=== PATIENT | female | born 2005 | race Two or more races ===

== ENCOUNTER 2025-05-18 05:25 | Inpatient (IN) | payer OTHER ==
[2025-05-18] MEDS: LACTATED RINGERS SOLUTION 1000 ML INFUS.BAG IV STA (06:05)
[2025-05-18] MEDS ORDERED: ACETAMINOPHEN INJECTION 100 ML ONE ×2 (06:05→13:39)
[2025-05-18] MEDS: SODIUM CHLORIDE 0.9% 500 ML INFUS.BAG IV ONE (06:05)
[2025-05-18] MEDS: SODIUM CHLORIDE 0.9% 1000 ML INFUS.BAG IV STA (06:05)
[2025-05-18] MEDS: ACETAMINOPHEN 1000 MG/100 ML BAG IVPB ONE ×2 (06:21→13:43)
[2025-05-18] MEDS ORDERED: MORPHINE SULFATE 2 MG/ML SYRINGE ONE (06:22)
[2025-05-18] MEDS: morphine CARPU-JECT 2 MG/1 ML DISP.SYRIN IVPUSH ONE (06:26)
[2025-05-18 06:31] LABS: VENOUS BASE EXCESS 0.2 mmol/L (-2-2); VENOUS O2 SATURATION 53.7 % (70-80); VENOUS PCO2 23.7 mmHg (38-52); VENOUS PH 7.559 (7.310-7.410)
[2025-05-18 06:33] LABS: HEMATOCRIT 36.6 % (34.1-44.9); HEMOGLOBIN 12.3 g/dL (11.2-15.7); MCHC 33.6 g/dl (32.2-35.5); MEAN CELL VOLUME 86.1 fl (79.4-94.8); MEAN PLT VOLUME 10.6 fl (9.4-12.3); PLATELET COUNT 256 x10^3/uL (182-369); RDW 11.9 % (12.0-16.2)
[2025-05-18 06:44] LABS: INR 1.23 (0.83-1.09); PROTHROMBIN TIME (PATIENT) 13.5 SEC (9.7-13.0)
[2025-05-18 06:47] LABS: ACTIVATED PTT 27.2 SECONDS (25.2-36.5)
[2025-05-18 06:48] LABS: POTASSIUM 3.7 mmol/L (3.5-5.1)
[2025-05-18 06:50] LABS: ALBUMIN 3.8 g/dl (3.4-5.0); CALCIUM 9.5 mg/dL (8.5-10.1)
[2025-05-18 06:51] LABS: BLOOD UREA NITROGEN 13.9 mg/dL (7-18)
[2025-05-18 06:54] LABS: CREATININE 0.6 mg/dL (0.55-1.3)
[2025-05-18 06:56] LABS: BILIRUBIN,TOTAL 0.9 mg/dL (0.2-1); TOT PROT 7.3 g/dl (6.4-8.2)
[2025-05-18 08:25] LABS: EPI CELLS >36 /uL (0-25.1); HYALINE CASTS 1 /uL (0-3.1); URINE APPEARANCE CLEAR; URINE BACTERIA 1284 /uL (0-1359); URINE BILIRUBIN NEGATIVE (NEGATIVE); URINE COLOR YELLOW; URINE GLUCOSE (UA) NEGATIVE (NEGATIVE); URINE KETONE 4+ (NEGATIVE); URINE LEUK ESTERASE TRACE (NEGATIVE); URINE NITRITE NEGATIVE (NEGATIVE); URINE PROTEIN 1+ (NEGATIVE); URINE RBC 110 /uL (0-23.9); URINE WBC 102 /uL (0-25.8)
[2025-05-18] MEDS: LACTATED RINGERS SOLUTION 1000 ML INFUS.BAG IV ONE (08:45)
[2025-05-18] MEDS ORDERED: PENICILLIN G BENZATHINE 1,200,000 UNIT/2 ML PFS IM ONE (09:34)
[2025-05-18] MEDS: PENICILLIN G BENZATHINE 1,200,000 UNIT/2 ML PFS IM ONE (09:42)
[2025-05-18] MEDS ORDERED: KETOROLAC TROMETHAMINE 15 MG/ML VIAL ONE (11:12)
[2025-05-18] MEDS: KETOROLAC TROMETHAMINE 15 MG/ML VIAL IVPUSH ONE (11:16)
[2025-05-18] MEDS ORDERED: METOCLOPRAMIDE HCL INJECTION 10 MG/2 ML VIAL ONE (11:17)
[2025-05-18] MEDS: METOCLOPRAMIDE HCL INJECTION 10 MG/2 ML VIAL IVPUSH ONE (11:24)
[2025-05-18] MEDS ORDERED: ACETAMINOPHEN 325 MG TABLET (FP) PO PRN (14:00)
[2025-05-18] MEDS: DEXTROSE 5%-0.45% SALINE 1,000 ML IV SCH (14:22)
[2025-05-18] MEDS ORDERED: PHENOL 177 ML SPRAY BOTTLE MM PRN (17:27)
[2025-05-18] MEDS: PIPERACILLIN/TAZOB 3.375 GM 3.375 GM in DEXTROSE 5%-WATER - 50 ML IVPB SCH (17:48)
[2025-05-18 18:11] VITALS: BMI 30.2
[2025-05-18] MEDS: ACETAMINOPHEN 325 MG TABLET (FP) PO PRN (19:55)
[2025-05-18] MEDS: METOCLOPRAMIDE HCL INJECTION 10 MG/2 ML VIAL IVPUSH PRN (22:38)
[2025-05-19 07:56] LABS: HEMATOCRIT 32.2 % (34.1-44.9); HEMOGLOBIN 10.9 g/dL (11.2-15.7); MCHC 33.9 g/dl (32.2-35.5); MEAN CELL VOLUME 87.7 fl (79.4-94.8); MEAN PLT VOLUME 10.5 fl (9.4-12.3); PLATELET COUNT 230 x10^3/uL (182-369); RDW 12.1 % (12.0-16.2)
[2025-05-19 08:22] LABS: POTASSIUM 3.5 mmol/L (3.5-5.1)
[2025-05-19] MEDS: LACTATED RINGERS SOLUTION 1,000 ML/1,000 ML INFUS.BAG IV SCH (08:40)
[2025-05-19 09:01] LABS: CALCIUM 8.6 mg/dL (8.5-10.1)
[2025-05-19 09:02] LABS: BLOOD UREA NITROGEN 6.8 mg/dL (7-18); CREATININE 0.5 mg/dL (0.55-1.3)
[2025-05-19 09:03] LABS: BILIRUBIN,TOTAL 0.7 mg/dL (0.2-1); TOT PROT 6.1 g/dl (6.4-8.2)
[2025-05-19 09:04] LABS: MONOCYTE # 0.99 x10^3/uL (0.24-0.86)
[2025-05-19 10:43] VITALS: RESP 18
[2025-05-19 14:34] VITALS: BP 113/73; PULSE 106; TEMP 97.3
== END 2025-05-19 17:05 | disposition left against medical advice (07) | DRG 113 ==
LOC: JER 05:25 → JERBED 11:33 → OBSVTOIN 13:57 → J8W 16:05
PROVIDERS: ADMIT Internal Medicine
DX: J02.0 Streptococcal pharyngitis (principal); R31.9 Hematuria, unspecified; R10.31 Right lower quadrant pain; N83.291 Other ovarian cyst, right side; D72.829 Elevated white blood cell count, unspecified
CPT/HCPCS: 0241U-QW; 36415; 70450-TC; 71045-TC-FY; 74177-TC; 76817-TC; 80053; 81003; 82803; 83605; 84484; 84702; 85025; 85610; 85730; 86850; 86900; 86901; 87040; 87086; 87651; 93005; 93010; 99285-25; G0378; Q9967